=== PATIENT | male | born 1990 | race Two or more races ===

== ENCOUNTER 2019-03-17 16:49 | Emergency (ER) ==
[2019-03-17 16:56] VITALS: BP 156/77
== END 2019-03-17 19:00 | disposition left against medical advice (07) ==
LOC: ER 16:49
DX: Z53.21 Procedure and treatment not carried out due to patient leaving prior to being seen by health care provider (principal); R21 Rash and other nonspecific skin eruption

== ENCOUNTER 2019-03-17 21:58 | Emergency (ER) | payer OTHER ==
[2019-03-17] MEDS ORDERED: DIPHENHYDRAMINE HCL 50 MG/ML VIAL IM ONE (23:34)
[2019-03-17] MEDS ORDERED: FAMOTIDINE 20 MG TABLET PO ONE (23:34)
[2019-03-17] MEDS ORDERED: DEXAMETHASONE SOD PHOS INJ 10 MG/1 ML VIAL IM ONE (23:34)
--- NOTE | 2019-03-17 23:47 | ER Document Report ---
ED General - General Chief Complaint: Rash Stated Complaint: RASH, ENTIRE BODY Time Seen by Provider: 03/17/19 23:29 Mode of Arrival: Ambulatory Information source: Patient TRAVEL OUTSIDE OF THE [place] IN LAST 30 DAYS: No - HPI Patient complains to provider of: Hives Onset: This evening Onset/Duration: Sudden Quality of pain: No pain Severity: Severe Associated symptoms: Other - Profuse rash with itching Exacerbated by: Denies Relieved by: Denies Similar symptoms previously: No Recently seen / treated by doctor: No Notes: 28-year-old male patient coming in today covered up in rash which is itchy. Started earlier this evening. He was seated at his desk at home. No known exposure. Did not need anything new. No new toiletries. No new soaps. No new medications or supplements. - Related Data Allergies/Adverse Reactions: No Known Allergies Allergy (Unverified 03/17/19 16:52) Past Medical History - General Information source: Patient - Social History Smoking Status: Never Smoker Family History: Reviewed & Not Pertinent Patient has suicidal ideation: No Patient has homicidal ideation: No Renal/ Medical History: Denies: Hx Peritoneal Dialysis Review of Systems - Review of Systems Notes: Constitutional: No fevers. No chills. EENT: No eye redness. No eye pain. No ear pain. No sore throat. Cardiovascular: No chest pain. No palpitations. Respiratory: No cough. No shortness of breath. No respiratory distress. Gastrointestinal: No abdominal pain. No nausea, vomiting, or diarrhea. Genitourinary: Atraumatic. No lesions. No pain. No discharge. Musculoskeletal: Atraumatic. No swelling. No deformities. Skin: Positive for rash, positive for pruritus Lymphatic: No swollen lymph nodes. Neurologic: No headache. No syncope. Psychiatric: No suicidal or homicidal ideation. Physical Exam - Vital signs Vitals: Temp Pulse Resp BP Pulse Ox 97.8 F 60 20 136/75 H 99 03/17/19 22:07 03/17/19 22:07 03/17/19 22:07 03/17/19 22:07 03/17/19 22:07 - Notes Notes: General: Well-developed, well-nourished. In no acute distress. Non-toxic ap pearing. Cardiac: Well-perfused. Regular rate and rhythm. No murmurs, rubs, or gallops. Pulmonary: No respiratory distress. No cyanosis. Bilateral lung fiels are clear to auscultation. Abdominal: Non-distended. Non-rigid. Bowels sounds are present in all four quadrants. No guarding or rebound. HEENT: Head is atraumatic. Conjunctivae not reddened. No tearing. PERRL. EOMI. Orbits atraumatic. No periorbital swelling or erythema. Oropharynx is not swollen. Lips not swollen. Tongue not swollen. No submandibular or sublingual swelling. No dysphonia dyspnea or dysphagia Neck: Supple. No adenopathy. No meningismus. Dermatologic: Extensive urticarial rash most prominent on the chest and back Chest: Atraumatic. No chest wall tenderness to palpation. Musculoskeletal: Moves all extremities well. No range of motion deficits. no muscular or joint tenderness. No paraspinal muscle tenderness. no midline spinal tenderness or step-off. Genitourinary: Examination deferred Neurologic: No gross neurologic deficits. Psychiatric: Normal mood. Course - Re-evaluation Re-evalutation: 03/17/19 23:46 Patient appears to just be having an acute attack of urticaria without any other more serious involvement. We will give him a shot of dexamethasone, Benadryl, and some oral Pepcid. - Vital Signs Vital signs: Temp Pulse Resp BP Pulse Ox 97.8 F 60 20 136/75 H 99 03/17/19 22:07 03/17/19 22:07 03/17/19 22:07 03/17/19 22:07 03/17/19 22:07 Discharge - Discharge Clinical Impression: Acute urticaria Condition: Good Disposition: HOME, SELF-CARE Instructions: Acute Urticaria ([facility]) Prescriptions: Famotidine [Pepcid 20 mg Tablet] 20 mg PO BID 5 Days #10 tablet Hydroxyzine HCl [Atarax 25 mg Tablet] 1 tab PO QID 5 Days #20 tablet Prednisone [Deltasone 20 mg Tablet] 60 mg PO DAILY #15 tablet Referrals: [facility] [Provider Group] - Follow up as needed
[2019-03-18 00:25] VITALS: BP 136/84
== END 2019-03-18 00:22 | disposition home or self-care (01) ==
LOC: ER 21:58
DX: L50.9 Urticaria, unspecified (principal); R21 Rash and other nonspecific skin eruption
CPT/HCPCS: 99282; 96372; J1200; J1100